=== PATIENT | female | born 1980 | race African-American/Black ===

== ENCOUNTER 2020-05-16 08:36 | Outpatient (REF) | payer MEDICARE, MEDICAID, SELFPAY | END 2020-05-16 08:37 | disposition home or self-care (01) | LOC: HO.LAB 08:36 | PROVIDERS: PCP Internal Medicine; Visit Provider Internal Medicine | DX: Z20.828 Contact with and (suspected) exposure to other viral communicable diseases (principal) | CPT/HCPCS: U0003 ==

== ENCOUNTER 2020-06-18 08:49 | Outpatient (REF) | payer MEDICARE, MEDICAID, SELFPAY | END 2020-06-18 08:50 | disposition home or self-care (01) | LOC: HO.LAB 08:49 | PROVIDERS: Visit Provider Internal Medicine | DX: Z20.828 Contact with and (suspected) exposure to other viral communicable diseases (principal) | CPT/HCPCS: C9803; U0003 ==

== ENCOUNTER 2020-06-24 12:23 | Outpatient (REF) | payer MEDICARE, MEDICAID, SELFPAY | END 2020-06-24 12:24 | disposition home or self-care (01) | LOC: HO.LAB 12:23 | PROVIDERS: PCP Internal Medicine; Visit Provider Internal Medicine | DX: Z20.828 Contact with and (suspected) exposure to other viral communicable diseases (principal) | CPT/HCPCS: C9803; U0003 ==

== ENCOUNTER 2020-07-09 08:25 | Outpatient (REF) | payer MEDICARE, MEDICAID, SELFPAY | END 2020-07-09 08:26 | disposition home or self-care (01) | LOC: HO.LAB 08:25 | PROVIDERS: Visit Provider Internal Medicine | DX: Z20.828 Contact with and (suspected) exposure to other viral communicable diseases (principal) | CPT/HCPCS: C9803; U0003 ==

== ENCOUNTER 2020-07-29 07:32 | Outpatient (REF) | payer MEDICARE, MEDICAID, SELFPAY | END 2020-07-29 07:33 | disposition home or self-care (01) | LOC: HO.LAB 07:32 | PROVIDERS: Visit Provider Internal Medicine | DX: Z20.822 Contact with and (suspected) exposure to COVID-19 (principal) | CPT/HCPCS: 36415; C9803; U0003 ==

== ENCOUNTER 2020-08-29 10:36 | Outpatient (REF) | payer MEDICARE, MEDICAID, SELFPAY | END 2020-08-29 10:37 | disposition home or self-care (01) | LOC: HO.LAB 10:36 | PROVIDERS: PCP Internal Medicine; Visit Provider Internal Medicine | DX: Z20.822 Contact with and (suspected) exposure to COVID-19 (principal) | CPT/HCPCS: 36415; C9803; U0003; U0005 ==

== ENCOUNTER 2020-10-03 12:44 | Outpatient (REF) | payer MEDICARE, MEDICAID, SELFPAY | END 2020-10-03 12:45 | disposition home or self-care (01) | LOC: HO.LAB 12:44 | PROVIDERS: Visit Provider Internal Medicine | DX: Z20.822 Contact with and (suspected) exposure to COVID-19 (principal) | CPT/HCPCS: 36415; C9803; U0003; U0005 ==

== ENCOUNTER 2020-11-08 12:04 | Outpatient (REF) | payer MEDICARE, MEDICAID, SELFPAY ==
[2020-11-08 12:27] LABS: COVID-19 Test Negative (Negative); IDNOW Serial# 55D5AD1C
== END 2020-11-08 12:05 | disposition home or self-care (01) ==
LOC: HO.LAB 12:04
PROVIDERS: Visit Provider Internal Medicine
DX: Z20.822 Contact with and (suspected) exposure to COVID-19 (principal)
CPT/HCPCS: 36415; 87635; C9803

== ENCOUNTER 2021-04-10 08:11 | Outpatient (REF) | payer MEDICARE, MEDICAID, SELFPAY | END 2021-04-10 08:12 | disposition home or self-care (01) | LOC: HO.LAB 08:11 | PROVIDERS: PCP Internal Medicine; Visit Provider Internal Medicine | DX: Z20.822 Contact with and (suspected) exposure to COVID-19 (principal) | CPT/HCPCS: C9803; U0003; U0005 ==

== ENCOUNTER 2024-03-23 08:36 | Inpatient (IN) | payer SELFPAY ==
--- NOTE | ~2024-03-23 | CT_ITS ---
EXAMINATION: CT ABDOMEN AND PELVIS WITH CONTRAST CLINICAL INFORMATION: Abdominal pain, nausea and vomiting COMPARISON: None available. TECHNIQUE: Multidetector volumetric images were obtained from the superior aspect of the liver through the pubic symphysis following administration 85 mL of Omnipaque 350 intravenous contrast. Sagittal and coronal reformatted images were obtained on the technologist's workstation. Oral contrast: No This CT examination was performed using dose optimization techniques as appropriate, variously including the following: *Automated exposure control *Adjustment of mA and/or kV according to patient size (this includes techniques or standardized protocols for targeted exams where dose is matched to indication/reason for exam; i.e. extremities or head) *Use of iterative reconstruction technique DLP: 616 mGy-cm FINDINGS: LUNG BASES: Heart size is prominent. Nonspecific groundglass changes are seen at the lung bases. LIVER, GALLBLADDER, AND BILIARY TREE: The liver is normal in size, shape, and attenuation. No focal hepatic lesion or biliary ductal dilatation is present. The gallbladder wall is thickened with some pericholecystic fluid and some minimal inflammatory changes in the surrounding fat. Changes are at least suggestive of cholecystitis but ultrasound is recommended for further evaluation. There are no radiopaque gallstones.. PANCREAS: Unremarkable. SPLEEN: Unremarkable. ADRENAL GLANDS: Unremarkable. KIDNEYS AND URETERS: The kidneys are normal in size, shape, and attenuation. No hydronephrosis, hydroureter, or calculi seen. No perinephric stranding. BLADDER: Unremarkable. GASTROINTESTINAL TRACT: There is a tiny hiatal hernia. The small and large bowel are unremarkable. The appendix is unremarkable. ABDOMINAL WALL: Small periumbilical hernia seen containing only fat along with a small epigastric hernia containing fat as well as a portion of a recanalized umbilical vein. LYMPH NODES: No retroperitoneal lymphadenopathy. VASCULAR: Unremarkable. PELVIC VISCERA: The uterus and adnexa are unremarkable. OSSEOUS STRUCTURES: Unremarkable. CT/CT abdomen pelvis w IV con IMPRESSION: 1. Gallbladder wall thickening with pericholecystic fluid and some inflammatory changes in the surrounding fat. Findings are at least suggestive of cholecystitis. Ultrasound is recommended for further evaluation. 2. Other incidental findings as described above. Fleischner guidelines were followed. Electronically signed by: Arron Duvall MD 03/23/2024 12:19 PM EDT
--- NOTE | ~2024-03-23 | US_ITS ---
EXAMINATION: US ABDOMEN LIMITED CLINICAL INFORMATION: Acute cholecystitis. COMPARISON: CT abdomen and pelvis with contrast 03/23/2024. TECHNIQUE: Real-time imaging of the right upper quadrant abdominal viscera. FINDINGS: LIVER: Mild hepatomegaly measuring 17.5 cm in length. The liver contour is normal. Slightly increased parenchymal echogenicity. No focal hepatic lesion. There is no intrahepatic biliary duct dilatation seen. GALLBLADDER: The gallbladder is decompressed and filled with calculi, limiting evaluation of the wall. No significant pericholecystic free fluid. Negative Polanco's sign. COMMON BILE DUCT: Normal in caliber measuring 0.3 cm in diameter. US/US abdomen limited IMPRESSION: 1. Decompressed gallbladder filled with stones which limits the visualization of the gallbladder wall. No significant pericholecystic free fluid. Negative Polanco's sign. Findings are equivocal for acute cholecystitis, for which clinical correlation is needed. Further evaluation with a hepatobiliary nuclear medicine study could be obtained as clinically warranted. 2. Mild hepatomegaly with slightly increased parenchymal echogenicity which is nonspecific but could be seen in the setting of hepatic steatosis or hepatocellular disease. Electronically signed by: Emmy Goode MD 03/23/2024 02:48 PM EDT
[2024-03-23 08:40] VITALS: BP 149/77; PULSE 77; RESP 16; TEMP 37.2; O2SAT 94; BMI 39.5
[2024-03-23 08:53] LABS: MANUAL DIFF FLAG NO
[2024-03-23 08:55] LABS: Basophils Percent Auto 0.4 % (0-2); Eosinophils Percent Auto 0.1 % (0-4); Hematocrit 37.1 % (37.0-47.0); Hemoglobin 12.1 g/dl (12.0-16.0); Imm Gran Abs Auto 0.03 X10*3/uL (0.00-0.03); Imm Gran Pct Auto 0.4 % (0.0-0.4); Lymphocytes Absolute Auto 0.8 X10*3/uL (1.2-4.9); Lymphocytes Percent Auto 10.3 % (20-40); Mean Corpuscular HGB Conc 32.6 g/dl (31.0-35.0); Mean Corpuscular Hemoglobin 26.9 pg (27.0-33.0); Mean Corpuscular Volume 82.6 fL (80.0-98.0); Mean Platelet Volume 11.1 fL (9.4-12.3); Monocytes Absolute Auto 0.2 X10*3/uL (0.1-1.2); Monocytes Percent Auto 3.1 % (2-11); Neutrophils Absolute Auto 6.3 x10*3/uL (2.0-8.3); Neutrophils Percent Auto 85.7 % (45-73); Platelet Count 147 X10*3/uL (160-400); Red Blood Count 4.49 X10*6/uL (4.20-5.50); Red Cell Distribution Width 15.3 % (11.0-16.0); White Blood Count 7.4 X10*3/uL (4.8-10.8)
[2024-03-23 09:14] LABS: Alanine Aminotransferase 16 U/L (0-31); Albumin Level 4.1 g/dL (3.5-5.0); Alkaline Phosphatase 51 U/L (39-117); Anion Gap 14 (12-20); Aspartate Amino Transferase 13 U/L (5-31); Bilirubin Total 0.4 mg/dL (0.0-1.0); Blood Urea Nitrogen 9 mg/dL (9-16); Calcium 9.2 mg/dL (8.4-10.2); Carbon Dioxide 24 mmol/L (22-29); Chloride 106 mmol/L (96-108); Creatinine Clr Calc Pharmacy 99.1; Estimated Glomerular Filt Rate > 60; Glucose Random 147 mg/dL (60-115); Potassium 3.7 mmol/L (3.3-5.1); Sodium 140 mmol/L (135-145); Total Protein 7.3 g/dL (6.5-8.0)
--- NOTE | 2024-03-23 09:21 | ED.ABDPAIN ---
HPI - Abdominal Pain General Chief Complaint: Abdominal Pain Stated Complaint: vomitng abd pain Time Seen by Provider: 03/23/24 09:13 Source: patient Mode of arrival: ambulatory Limitations: no limitations History of Present Illness ED Provider: Maria R TUTTLE HPI narrative: This is a 44-year-old female hx of HIV on cabanuva presenting to the emergency department complaints of diffuse abdominal pain ( worse in the epigastric region) that started on Saturday, 6 days ago, associated with nausea and vomiting that started earlier this morning ( no blood in either stool or vomit). She reports she just feels overall unwell. Decreased p.o. intake secondary to nausea, vomiting. No known sick contacts. She did take Zofran at home around 630 with little to no relief. She does report she is currently on her menses however she just had a normal period 2 weeks ago. Denies chest pain, shortness of breath, vision changes, dizziness, weakness, fevers, chills. Related Data Allergies Allergy/AdvReac Type Severity Reaction Status Date / Time No Known Allergies Allergy Verified 03/23/24 08:42 [No Known Allergies*] Review of Systems Review of Systems Yes all other systems are reviewed and are negative PMFSH Past Medical History Attestation statement: The following information was validated with the patient. Source: old records reviewed and nursing notes reviewed Social History Social History Smoked in Last 30 Days: No Use of substances other than those prescribed or required for medical reasons: Yes Substance Use Type: Marijuana Advance Directives: No Advance Directives Information Provided: Yes Do you have a plan to hurt others: No Plan Patient : No Physical Exam ED Vital Signs: Vital Signs - 24 hr 03/23/24 08:40 03/23/24 10:18 03/23/24 12:16 Temperature 98.9 F 97.8 F Pulse Rate 77 52 61 Respiratory Rate 16 14 14 Blood Pressure 149/77 H 131/81 139/83 Pulse Oximetry 94 100 Oxygen Delivery Method Room Air Room Air BMI result Body Mass Index 39.5 vss Appearance: Alert.? Oriented X3.? No acute distress.? Head: Normocephalic, atraumatic, no step-offs or deformities Eyes: Pupils equal, round and reactive to light.? ENT: Pharynx normal.? Neck: Normal inspection.? Neck supple.? CVS: Normal heart rate and rhythm.? Pulses normal.? Respiratory: No respiratory distress.? Breath sounds normal.? Abdomen: Soft and nontender.? Skin: Skin warm and dry.? Normal skin color.? Normal skin turgor.? Extremities: No lower extremity edema.? No calf ttp. 5/5 strength to bilateral upper and lower extremities Neuro: Oriented X 3.? No motor deficit.? No sensory deficit. CN 2-12 intact Course Reevaluation(s) Reevaluation #1: On her CBC unremarkable. Chemistry no acute findings needing intervention. Troponin negative. Lipase normal. Beta hCG negative. Patient's urine without infection. CT scan of abdomen concerning for acute cholecystitis. Will reach out to surgery for further input. Time: 12:29 Reevaluation #2: Ceftriaxone 1 g will be given through the IV at this time. Surgery will come down and evaluate patient. Time: 12:32 Reevaluation #3: Plan surgical admit at this time. Medical Decision Making Medical Decision Making [facility] Narrative: 44 year old female presents with epigastric abdominal discomfort ongoing for the past 6 days. Physical exam with epigastric discomfort/right upper quadrant discomfort. Normoactive bowel sounds. History and physical exam concerning for gastritis versus GERD versus cholecystitis. Less likely cholangitis, choledocholithiasis, appendicitis, acute abdomen, pancreatitis, obstruction. Will rule out metabolic derangements. Plan labs, imaging, urine Differential Diagnosis Differential Diagnoses: The differential diagnosis associated with the presentation includes History and physical exam concerning for gastritis versus GERD versus cholecystitis. Less likely cholangitis, choledocholithiasis, appendicitis, acute abdomen, pancreatitis, obstruction. Will rule out metabolic derangements. Admission/Observation Consideration of admission/observation: Escalation of care including admission/observation considered possible Consult Healthcare Provider Management of the patient was discussed with: Sort Line Worker (Surgery Dr. James) Lab Data [facility] Lab Attestation statement: I reviewed the patient's lab results. 03/23/24 08:50 03/23/24 08:50 Labs: Lab Results 03/23/24 03/23/24 03/23/24 Range/Units 08:50 09:36 10:40 WBC 7.4 (4.8-10.8) X10*3/uL RBC 4.49 (4.20-5.50) X10*6/uL Hgb 12.1 (12.0-16.0) g/dl Hct 37.1 (37.0-47.0) % MCV 82.6 (80.0-98.0) fL MCH 26.9 L (27.0-33.0) pg MCHC 32.6 (31.0-35.0) g/dl RDW 15.3 (11.0-16.0) % Plt Count 147 L (160-400) X10*3/uL MPV 11.1 (9.4-12.3) fL Immature Gran % (Auto) 0.4 (0.0-0.4) % Neut % (Auto) 85.7 H (45-73) % Lymph % (Auto) 10.3 L (20-40) % [place] % (Auto) 3.1 (2-11) % Eos % (Auto) 0.1 (0-4) % Baso % (Auto) 0.4 (0-2) % Lymph # (Auto) 0.8 L (1.2-4.9) X10*3/uL [place] # (Auto) 0.2 (0.1-1.2) X10*3/uL Eos # (Auto) 0.0 (0.0-0.4) X10*3/uL Baso # (Auto) 0.0 (0.0-0.2) X10*3/uL Abs Immat Gran (auto) 0.03 (0.00-0.03) X10*3/uL Absolute Neuts (auto) 6.3 (2.0-8.3) x10*3/uL Absolute Nucleated RBC 0.000 (0.0-0.012) X10*3/uL Nucleated RBC % (auto) 0.0 (0.0-0.2) /100WBC Sodium 140 (135-145) mmol/L Potassium 3.7 (3.3-5.1) mmol/L Chloride 106 (96-108) mmol/L Carbon Dioxide 24 (22-29) mmol/L Anion Gap 14 (12-20) BUN 9 (9-16) mg/dL Creatinine 0.87 (0.5-1.4) mg/dL Estim Creat Clear Calc 99.1 Estimated GFR > 60 Random Glucose 147 H (60-115) mg/dL Calcium 9.2 (8.4-10.2) mg/dL Total Bilirubin 0.4 (0.0-1.0) mg/dL AST 13 (5-31) U/L ALT 16 (0-31) U/L Alkaline Phosphatase 51 (39-117) U/L Troponin I High Sens < 2.7 (<3.5-17.0) ng/L Total Protein 7.3 (6.5-8.0) g/dL Albumin 4.1 (3.5-5.0) g/dL Lipase 15 (8-78) U/L Beta HCG, Quant < 2 mIU/mL Urine Color Yellow Urine Appearance Clear Urine pH >= 9.0 (5.0-9.0) Ur Specific [place] 1.015 (1.005-1.025) Urine Protein Trace (Neg-Trace) mg/dL Urine Glucose (UA) Negative (Negative) mg/dL Urine Ketones Negative (Negative) mg/dL Urine Blood Large (3+) H (Negative) Urine Nitrite Negative (Negative) Ur Leukocyte Esterase Negative (Negative) Urine RBC >20 H (0-2) /HPF Urine WBC 0-5 (0-5) /HPF Ur Squamous Epith Cells 0-2 (0-2) /HPF Urine Bacteria None Seen (None Seen) Hyaline Casts 0-2 (0-2) /LPF Influenza Type A (PCR) NEGATIVE (Negative) Influenza Type B (PCR) NEGATIVE (Negative) RSV RNA Qual (PCR) NEGATIVE (Negative) SARS-CoV-2 RNA (RT-PCR) NEGATIVE (Negative) Independent Interpretation I performed an independent interpretation of an: CT Scan (CT/CT abdomen pelvis w IV con IMPRESSION: 1. Gallbladder wall thickening with pericholecystic fluid and some inflammatory changes in the surrounding fat. Findings are at least suggestive of cholecystitis. Ultrasound is recommended for further evaluation. 2. Other incidental findings as describe) Radiology Impression Discussion of test interpretation with radiology: I have reviewed the radiologist's reading. Chronic Conditions Patient?s care impacted by: Other (HIV) Medications Administered Generic Name Dose Route Start Last Admin Trade Name Freq PRN Reason Stop Dose Admin Ceftriaxone Sodium 1 gm/ 50 mls @ 100 mls/hr 03/23/24 12:29 03/23/24 12:42 Sodium Chloride IV 03/23/24 12:58 100 mls/hr ONCE ONE Administration Discontinued Medications Generic Name Dose Route Start Last Admin Trade Name Rona PRN Reason Stop Dose Admin Diphenhydramine HCl 25 mg 03/23/24 11:28 03/23/24 11:32 Diphenhydramine Hcl 25 Mg Capsule PO 03/23/24 11:29 25 mg ONCE ONE Administration Iohexol 85 ml 03/23/24 11:13 03/23/24 11:14 Iohexol 350 Mg/Ml 75 Ml Infus..Btl IV 03/23/24 11:14 85 ml ONCE ONE Administration Metoclopramide HCl 10 mg 03/23/24 11:28 03/23/24 11:32 Metoclopramide Hcl 10 Mg Tablet PO 03/23/24 11:29 10 mg ONCE ONE Administration Ondansetron HCl 4 mg 03/23/24 09:48 03/23/24 10:05 Ondansetron Hcl 4 Mg/2 Ml Vial IVPUSH 03/23/24 09:49 4 mg ONCE ONE Administration Critical Care Time Critical Care Time Critical Care Time: Yes Total Critical Care Time: 35 Attestation: I attest to this time spent taking care of the patient, obtaining history, physical, reviewing labs, imaging, treatment of patients condition +/- specialist/hospitalist consult Discharge Plan Discharge Clinical Impression: Acute cholecystitis Patient Disposition: Still a Patient Print Language: Occitan
[2024-03-23 09:28] LABS: Lipase 15 U/L (8-78)
--- NOTE | 2024-03-23 09:33 | ECG_ITS ---
Test Reason : ABD PAIN EPIGASTRIC Blood Pressure : / mmHG Vent. Rate : 059 BPM Atrial Rate : 059 BPM P-R Int : 214 ms QRS Dur : 090 ms QT Int : 458 ms P-R-T Axes : 053 042 028 degrees QTc Int : 453 ms Sinus bradycardia with 1st degree A-V block Otherwise normal ECG No previous ECGs available Referred By: Prince Heck Electronically Signed By:RHIANNA ALEXANDRA
[2024-03-23 09:39] LABS: HCG Quantitative < 2 mIU/mL
[2024-03-23 09:42] LABS: Appearance Urine Clear; Color Urine Yellow; Glucose Urine UA Negative (Negative); Leukocyte Esterase Urine Negative (Negative); Nitrite Urine Negative (Negative); PH >= 9.0 (5.0-9.0); Specific Gravity - Urine 1.015 (1.005-1.025); UMIC TRIGGER UACC YES; Urine Blood Large (3+) (Negative); Urine Ketones Negative (Negative); Urine Protein Trace mg/dL (Neg-Trace)
[2024-03-23 09:47] LABS: Bacteria Urine None Seen (None Seen); Hyaline Casts Urine 0-2 /LPF (0-2); RBC Urine >20 /HPF (0-2); Squamous Epithelial Cell Urine 0-2 /HPF (0-2); WBC Urine 0-5 /HPF (0-5)
--- NOTE | 2024-03-23 09:48 | PC.NURSE ---
a&ox4. vss and up to date. pt presents to the ED w/ epigastric pain radiating to her throat x saturday. pt also c/o associated nausea/vomiting/decreased PO intake/fever/chills x yesterday. pt took zofran at home [employer] w/ no relief. pt denies any blood in stool or vomit. abd tender w/ palpation. labs obtained in triage. ekg performed by tech. 20gIV placed in the right AC. pt waiting to have CT completed at this time. no sob/wob noted. respirations even/unlabored. plan of care ongoing. call stokes placed within reach.
[2024-03-23] MEDS: ondansetron HCL 4 MG/2 ML VIAL IVPUSH ×2 (10:05→18:45)
[2024-03-23 10:18] VITALS: BP 131/81; PULSE 52; RESP 14; TEMP 36.6; O2SAT 100
[2024-03-23 10:27] LABS: Troponin-I High Sensitivity < 2.7 ng/L (<3.5-17.0)
[2024-03-23] MEDS: iohexoL 350 MG/ML 75 ML INFUS..BTL 85 ML IV (11:14)
[2024-03-23 11:27] LABS: Influenza A PCR NEGATIVE (Negative); Influenza B PCR NEGATIVE (Negative); Resp Syncy Virus RNA Qual PCR NEGATIVE (Negative); SARS COV2 PCR INHOUSE NEGATIVE (Negative)
[2024-03-23] MEDS: diphenhydrAMINE HCL 25 MG CAPSULE PO (11:32)
[2024-03-23] MEDS: Metoclopramide HCl 10 MG TABLET PO (11:32)
--- NOTE | 2024-03-23 11:39 | PC.NURSE ---
Assumed care of this patient at 1100, patient continues to c/o nausea/vomiting, provider made aware, medicated per SEP.
[2024-03-23 12:16] VITALS: BP 139/83; PULSE 61; RESP 14
[2024-03-23] MEDS: cefTRIAXone sodium 1 GM in 0.9 % Sodium Chloride 50 ML IV (12:42)
--- NOTE | 2024-03-23 13:30 | HO.STUDENTHP ---
History of Present Illness Date of Service: 03/23/24 <Giovanna Kendall PA-C - Last Filed: 03/23/24 14:08> Chief Complaint: abdominal pain < Filed: 03/23/24 13:52> Pt is 44 year-old female with a PMHx of HIV on Cabenuva presenting with constant, worsening epigastric abdominal pain for six days and 12 hours of nausea with around 10 episodes of emesis. She states she hasn't been able to eat as much this week due to pain. She's had episodes of postprandial pain before, lasting a few hours. No diarrhea, constipation, hematochezia, fevers, chills, dysuria, increased urinary frequency, or hematuria. < Last Filed: 03/23/24 13:52> Pt is 44 year-old female with a PMHx of HIV on Cabenuva presenting with constant, worsening epigastric abdominal pain for six days and 12 hours of nausea with around 10 episodes of emesis. She states she hasn't been able to eat as much this week due to pain. She's had episodes of postprandial pain before, lasting a few hours. No diarrhea, constipation, hematochezia, fevers, chills, jaundice, dysuria, increased urinary frequency, or hematuria. <Giovanna Kendall PA-C - Last Filed: 03/23/24 14:08> Review of Systems Constitutional: Constitutional: Denies chills, Denies fever(s) and Reports poor appetite < Filed: 03/23/24 13:52> Eyes: Eyes: Reports no additional eye complaints < Filed: 03/23/24 13:52> ENT: Reports system reviewed and no additional complaints, except as documented < Filed: 03/23/24 13:52> Cardiovascular: Cardiovascular: Reports no additional cardiovascular complaints < Filed: 03/23/24 13:52> Respiratory: Respiratory: Reports no additional respiratory complaints < Filed: 03/23/24 13:52> Gastrointestinal: Gastrointestinal: Reports abdominal pain, Denies hematochezia, Denies change in bowel habits, Denies coffee ground emesis, Denies constipation, Denies diarrhea, Reports nausea and Reports vomiting < Filed: 03/23/24 13:52> Genitourinary: Genitourinary: Reports no additional female genitourinary complaints < Filed: 03/23/24 13:52> Musculoskeletal: Musculoskeletal: Reports no additional musculoskeletal complaints < Filed: 03/23/24 13:52> Integumentary/Breasts: Skin/Breast: Reports system reviewed and no additional complaints, except as docu < Filed: 03/23/24 13:52> Neurologic: Reports system reviewed and no additional complaints, except as documented < Filed: 03/23/24 13:52> Psychiatric: Psychiatric: Reports no additional psychiatric complaints < Filed: 03/23/24 13:52> [facility] Medical History: Medical History (Updated 03/23/24 @ 14:08 by Giovanna Kendall PA-C) HIV (human immunodeficiency virus infection) < Filed: 03/23/24 13:52> Surgical History: Surgical History (Updated 03/23/24 @ 14:06 by Giovanna Kendall PA-C) History of < Filed: 03/23/24 13:52> Social History: Social History (Updated 03/23/24 @ 14:07 by Giovanna Kendall PA-C) Smoked in Last 30 Days: No Use of substances other than those prescribed or required for medical reasons: Yes Substance Use Type: Marijuana Substance Use Frequency: Daily Advance Directives: No Advance Directives Information Provided: Yes Do you have a plan to hurt others: No Plan Patient : No < Filed: 03/23/24 13:52> Meds Allergies/Adverse reactions: Allergies Allergy/AdvReac Type Severity Reaction Status Date / Time No Known Allergies Allergy Verified 03/23/24 08:42 [No Known Allergies*] < Filed: 03/23/24 13:52> Home medications: Home Medications ?Medication ?Instructions ?Recorded ?Confirmed ?Last Taken ?Type cabotegravir ER 600 mg/3 6 ml IM Q60D 03/23/24 03/23/24 03/09/24 History mL-rilpivirine ER 900 mg/3mL IM suspension,ER (Cabenuva) <[facility] Filed: 03/23/24 13:52> Physical Exam Vital Signs and Narrative: Vital Signs: Last Vital Signs Temp 97.8 F 03/23/24 10:18 Pulse 61 03/23/24 12:16 Resp 14 03/23/24 12:16 BP 139/83 03/23/24 12:16 Pulse Ox 100 03/23/24 10:18 O2 Del Method Room Air 03/23/24 10:18 BMI result Body Mass Index 39.5 <[facility] Filed: 03/23/24 13:52> Afebrile <Nicole [facility] Filed: 03/23/24 13:52> Const: General: cooperative, no acute distress, alert and awake <Nicole [facility] Filed: 03/23/24 13:52> Orientation/consciousness: [facility] oriented x3 [facility]: 03/23/24 13:52> Limitations: no limitations <Nicole [facility] Filed: 03/23/24 13:52> HEENT: Head: Yes normocephalic and Yes atraumatic <Nicole [facility] Filed: 03/23/24 13:52> Ears: hearing grossly normal bilaterally <Nicole [facility] Filed: 03/23/24 13:52> Face and sinus: Yes face symmetric <Nicole [facility] Filed: 03/23/24 13:52> Mouth: Normal oral and palatal mucosa present <Nicole [facility] Filed: 03/23/24 13:52> Eyes: Conjunctivae: conjunctivae normal <Nicole [facility] Filed: 03/23/24 13:52> Sclerae: sclerae normal [facility] Filed: 03/23/24 13:52> EOM: EOMs intact bilaterally <Nicole [facility] Filed: 03/23/24 13:52> Neck: Yes full ROM and Yes no JVD <[facility] Filed: 03/23/24 13:52> Resp: Effort & Inspection: normal respiratory effort <[facility] Filed: 03/23/24 13:52> Auscultation: clear to auscultation bilaterally, no crackles, no rales, no rhonchi and no wheezes <[facility] Filed: 03/23/24 13:52> Cardio: Jugular venous distension: no JVD <[facility] Filed: 03/23/24 13:52> Rate: regular rate <[facility] Filed: 03/23/24 13:52> Rhythm: regular rhythm <[facility] Filed: 03/23/24 13:52> Heart sounds: S1 normal heart sound present, S2 normal heart sound present, no gallops, no murmurs and no rubs <[facility] Filed: 03/23/24 13:52> Peripheral pulses: Peripheral pulses 2+ throughout <[facility] Filed: 03/23/24 13:52> GI: Inspection: Yes normal to inspection <[facility] Filed: 03/23/24 13:52> Palpation (GI): Soft to palpation, Tenderness to palpation present (GI) in the epigastrum and in the RUQ; Polanco's sign negative and with no rebound tenderness, no guarding, not rigid, no masses, No Rebound tenderness present and Bladder palpation abnormal <[facility] Filed: 03/23/24 13:52> Auscultation: normoactive bowel sounds <[facility] Filed: 03/23/24 13:52> Rectal Exam - Female: deferred <[facility] Filed: 03/23/24 13:52> : General: Yes Bladder palpation abnormal and Yes no CVA tenderness <[facility] Filed: 03/23/24 13:52> Back/Spine/Pelvis: Back: no CVA tenderness <[facility] Filed: 03/23/24 13:52> Skin: General skin exam: no rashes or lesions noted <[facility] Last Filed: 03/23/24 13:52> Neuro: General: patient oriented x3 and moves all extremities <Nicole Last Filed: 03/23/24 13:52> Extrem: General: Yes capillary refill normal and Yes no pedal edema <Nicole Ritu Filed: 03/23/24 13:52> Results Labs CBC and Chem 7: 03/23/24 08:50 03/23/24 08:50 <Nicole Ritu Last Filed: 03/23/24 13:52> Labs: Laboratory Results - last 24 hr 03/23/24 03/23/24 03/23/24 08:50 09:36 10:40 MCV 82.6 MCH 26.9 L MCHC 32.6 RDW 15.3 Plt Count 147 L MPV 11.1 Immature Gran % (Auto) 0.4 Neut % (Auto) 85.7 H Lymph % (Auto) 10.3 L [place] % (Auto) 3.1 Eos % (Auto) 0.1 Baso % (Auto) 0.4 Lymph # (Auto) 0.8 L [place] # (Auto) 0.2 Eos # (Auto) 0.0 Baso # (Auto) 0.0 Abs Immat Gran (auto) 0.03 Absolute Neuts (auto) 6.3 Absolute Nucleated RBC 0.000 Nucleated RBC % (auto) 0.0 Anion Gap 14 Estim Creat Clear Calc 99.1 Estimated GFR > 60 Random Glucose 147 H Calcium 9.2 Total Bilirubin 0.4 AST 13 ALT 16 Alkaline Phosphatase 51 Troponin I High Sens < 2.7 Total Protein 7.3 Albumin 4.1 Lipase 15 Beta HCG, Quant < 2 Urine Color Yellow Urine Appearance Clear Urine pH >= 9.0 Ur Specific [place] 1.015 Urine Protein Trace Urine Glucose (UA) Negative Urine Ketones Negative Urine Blood Large (3+) H Urine Nitrite Negative Ur Leukocyte Esterase Negative Urine RBC >20 H Urine WBC 0-5 Ur Squamous Epith Cells 0-2 Urine Bacteria None Seen Hyaline Casts 0-2 Influenza Type A (PCR) NEGATIVE Influenza Type B (PCR) NEGATIVE RSV RNA Qual (PCR) NEGATIVE SARS-CoV-2 RNA (RT-PCR) NEGATIVE <Nicole Weathers Filed: 03/23/24 13:52> Imaging Radiologist's Impressions: Impressions Abdomen/Pelvis CT 03/23/24 11:06 IMPRESSION: 1. Gallbladder wall thickening with pericholecystic fluid and some inflammatory changes in the surrounding fat. Findings are at least suggestive of cholecystitis. Ultrasound is recommended for further evaluation. 2. Other incidental findings as described above. Fleischner guidelines were followed. Electronically signed by: Arron Duvall MD 03/23/2024 12:19 PM EDT RP <Nicole Weathers - Last Filed: 03/23/24 13:52> Assessment and Plan (1) Acute cholecystitis: Status: Acute <Nicole Weathers [facility] Filed: 03/23/24 13:52> Pt is 44 yo with PMHx of HIV on Cabnenuva presenting with 6 days of worsening abdominal pain, 12 hours of nausea and vomiting, and past symptoms consistent with billiary colic. Exam is significant for epigastric/RUQ tenderness without Polanco's sign or peritoneal signs, labs significant for left shift, and abdominal CT showing gallbladder wall thickening w/ pericholecystic fluid. Consistent with acute cholecystitis. Discussed treatment, including surgical and non-surgical options, including all risks/benefits. No history of cardiovascular or respiratory diseases, NKDA, and has had a without complications. Consented to a laproscopic cholecystectomy. Plan: Admit to surgery, plan for lap dominic, possible open tomorrow IV hydration Analgesia prn for pain Zofran prn for nausea Seen independently by Nicole Weathers, MS3 <Nicole Weathers Last Filed: 03/23/24 13:52> Pt is 44 yo with PMHx of HIV on Cabnenuva presenting with 6 days of worsening abdominal pain, 12 hours of nausea and vomiting, and past symptoms consistent with billiary colic. Exam is significant for epigastric/RUQ tenderness without Polanco's sign or peritoneal signs, labs significant for left shift, and abdominal CT showing gallbladder wall thickening w/ pericholecystic fluid. Consistent with acute cholecystitis. Discussed treatment, including surgical and non-surgical options, including all risks/benefits. No history of cardiovascular or respiratory diseases, NKDA, and has had a without complications. Consented to a laproscopic cholecystectomy. Plan: Admit to surgery, plan for lap dominic, possible open tomorrow IV hydration Analgesia prn for pain Zofran prn for nausea Seen independently by YAZMIN Briscoe Agree with above assessment and plan. 44 year old female with PMH HIV presenting with RUQ/epigastric pain since last Saturday with acute worsening last night with development of nausea/vomiting. Work up included CBC, BMP, LFTs which were WNL. She is tender in the RUQ with positive polanco sign. CT scan showed distended gallbladder with wall thickening and pericholecystic fluid suggestive of acute cholecystitis. Risks, benefits, alternatives of laparoscopic possible open cholecystectomy were reviewed with the patient including but not limited to bleeding, infection, numbness, pain, poor healing, injury to the liver, bowel or bile ducts, leak, retained stones and the patient wishes to proceed.? She was added onto the OR schedule for tomorrow. All questions were answered. Recanalization of umbilical vein noted. No evidence of cirrhosis on CT. Will obtain ABD US. <Giovanna Kendall PA-C - Last Filed: 03/23/24 14:08> Pt is 44 yo with PMHx of HIV on Cabnenuva presenting with 6 days of worsening abdominal pain, 12 hours of nausea and vomiting, and past symptoms consistent with billiary colic. Exam is significant for epigastric/RUQ tenderness without Polanco's sign or peritoneal signs, labs significant for left shift, and abdominal CT showing gallbladder wall thickening w/ pericholecystic fluid. Consistent with acute cholecystitis. Discussed treatment, including surgical and non-surgical options, including all risks/benefits. No history of cardiovascular or respiratory diseases, NKDA, and has had a without complications. Consented to a laproscopic cholecystectomy. Plan: Admit to surgery, plan for lap dominic, possible open tomorrow IV hydration Analgesia prn for pain Zofran prn for nausea Seen independently by YAZMIN Briscoe Agree with above assessment and plan. 44 year old female with PMH HIV presenting with RUQ/epigastric pain since last Saturday with acute worsening last night with development of nausea/vomiting. Work up included CBC, BMP, LFTs which were WNL. She is tender in the RUQ with positive polanco sign. CT scan showed distended gallbladder with wall thickening and pericholecystic fluid suggestive of acute cholecystitis. Risks, benefits, alternatives of laparoscopic possible open cholecystectomy were reviewed with the patient including but not limited to bleeding, infection, numbness, pain, poor healing, injury to the liver, bowel or bile ducts, leak, retained stones and the patient wishes to proceed.? She was added onto the OR schedule for tomorrow. All questions were answered. Recanalization of umbilical vein noted. No evidence of cirrhosis on CT. Will obtain ABD US. Patient is seen by me as well. As noted above. <Jamey James MD - Last Filed: 03/23/24 14:34> Quality Stroke Does the patient have a stroke diagnosis?: No <Giovanna Kendall PA-C - Last Filed: 03/23/24 14:08> VTE Prior VTE?: No <Giovanna Kendall PA-C - Last Filed: 03/23/24 14:08> VTE Risk Level:: Surgical - high <Giovanna Kendall PA-C - Last Filed: 03/23/24 14:08> VTE Device Contraindication: N/A - Device Ordered <Giovanna Kendall PA-C - Last Filed: 03/23/24 14:08> VTE Drug Contraindication: N/A - Med Ordered <Giovanna Kendall PA-C - Last Filed: 03/23/24 14:08>
[2024-03-23] MEDS: Morphine Sulfate 4 MG/ML CARTRIDGE IVPUSH (14:14)
--- NOTE | 2024-03-23 14:25 | PHA.MEDREC ---
Pharmacy Consult ? Medication Reconciliation Pharmacy has completed the medication reconciliation, spoke to patient and family member who confirmed Cabenuva injections every 2 months, stated her last injection was March 09, 2024, family member at bedside said she takes nothing else as pt had difficult time speaking.
[2024-03-23] MEDS: Piperacillin Sodium/Tazobactam 3.375 GM in 0.9 % Sodium Chloride 50 ML IV ×2 (14:26→21:31)
[2024-03-23] MEDS: Lactated Ringers 1,000 ML 100 ML IVCONT ×2 (16:01→22:06)
[2024-03-23] MEDS: 0.9 % Sodium Chloride Flush 3 ML SYRINGE IVFLUSH (16:01)
[2024-03-23 17:42] VITALS: BP 155/71; PULSE 76; RESP 16; TEMP 36.8; O2SAT 98
--- NOTE | 2024-03-23 18:18 | PC.NURSE ---
Pt ambulated to the bathroom c/o dizziness- Pt stated her nausea was worse with standing and sitting up-
[2024-03-23] MEDS: HYDROmorphone HCl 1 MG/ML SYRINGE 0.5 MG IVPUSH (19:56)
[2024-03-23 21:04] VITALS: BP 137/76; PULSE 68; RESP 20; TEMP 36.6; O2SAT 99
[2024-03-23] MEDS: Melatonin 3 MG TABLET 6 MG PO (21:30)
[2024-03-23] MEDS: oxyCODONE HCl Immed Release 5 MG TABLET PO (21:44)
[2024-03-23 22:00] VITALS: BMI 38.3
[2024-03-23 22:09] VITALS: BMI 38.3
[2024-03-23] MEDS: Metoclopramide HCl 10 MG/2 ML VIAL IVPUSH (23:20)
[2024-03-24] VITALS (13 sets, daily range): BP systolic 113–162; BP diastolic 58–96; PULSE 58–74; RESP 16–20; TEMP 36.6–37.1; O2SAT 95–100
--- NOTE | 2024-03-24 00:09 | PC.NURSE ---
Patient would like to receive flu vaccine after surgery if possible.
[2024-03-24] MEDS: Piperacillin Sodium/Tazobactam 3.375 GM in 0.9 % Sodium Chloride 50 ML IV ×2 (02:51→07:38)
[2024-03-24] MEDS: Metoclopramide HCl 10 MG/2 ML VIAL IVPUSH ×2 (06:31→17:35)
--- NOTE | 2024-03-24 07:08 | HO.STUDENTPN ---
Subjective Subjective Date of Service: 03/24/24 <[facility] Last Filed: 03/24/24 07:17> 03/25/24 <Giovanna Kendall PA-C - Last Filed: 03/25/24 08:38> 03/25/24 <Jamey James MD - Last Filed: 03/25/24 09:39> Interval History: Pt resting comfortably in bed, endorses nausea but no additional episodes of emesis, pain 310 with analgesia NPO for lap dominic today <[facility] Last Filed: 03/24/24 07:17> Review of Systems Review of Systems: Yes all other systems are reviewed and are negative <[facility] Filed: 03/24/24 07:17> Constitutional Constitutional: Reports no additional constitutional complaints <[facility] Filed: 03/24/24 07:17> Eyes Eyes: Reports no additional eye complaints <[facility] Filed: 03/24/24 07:17> ENT Ears, Nose, Mouth, and Throat: Reports system reviewed and no additional complaints, except as documented <[facility] Filed: 03/24/24 07:17> Cardiovascular Cardiovascular: Reports no additional cardiovascular complaints <[facility] Filed: 03/24/24 07:17> Respiratory Respiratory: Reports no additional respiratory complaints <[facility] Filed: 03/24/24 07:17> Gastrointestinal Gastrointestinal: Reports abdominal pain (RUQ), Denies bloating, Reports nausea and Denies vomiting <[facility] Filed: 03/24/24 07:17> Genitourinary Genitourinary: Reports no additional female genitourinary complaints <[facility] Filed: 03/24/24 07:17> Musculoskeletal Musculoskeletal: Reports no additional musculoskeletal complaints <[facility] Filed: 03/24/24 07:17> Integumentary/Breasts Skin/Breast: Reports no additional skin complaints <[facility] Filed: 03/24/24 07:17> Neurologic Neurologic: Reports system reviewed and no additional complaints, except as documented <[facility] Filed: 03/24/24 07:17> Psychiatric Psychiatric: Reports no additional psychiatric complaints <[facility] Filed: 03/24/24 07:17> Endocrine Endocrine: Reports no additional endocrine complaints <[facility] Filed: 03/24/24 07:17> Hematologic/Lymphatic Hematologic/Lymphatic: Reports no additional hematologic/lymphatic complaints <[facility] Filed: 03/24/24 07:17> Physical Exam Vital Signs: Vital Signs: Last Vital Signs Temp 97.9 F 03/24/24 03:18 Pulse 70 03/24/24 03:18 Resp 16 03/24/24 03:18 BP 114/61 03/24/24 03:18 Pulse Ox 98 03/24/24 03:18 O2 Del Method Room Air 03/24/24 03:18 BMI result Body Mass Index 38.3 <[facility] Filed: 03/24/24 07:17> Remains afebrile <[facility] Filed: 03/24/24 07:17> Const: General: cooperative, no acute distress, alert, awake and Physically active <[facility] Filed: 03/24/24 07:17> Orientation/consciousness: patient oriented x3 <[facility] Filed: 03/24/24 07:17> HEENT: Head: Yes normocephalic and Yes atraumatic <[facility] Filed: 03/24/24 07:17> Ears: hearing grossly normal bilaterally <[facility] Filed: 03/24/24 07:17> Face and sinus: Yes face symmetric <[facility] Filed: 03/24/24 07:17> Eyes: Sclerae: sclerae normal <[facility] Filed: 03/24/24 07:17> EOM: EOMs intact bilaterally <[facility] Filed: 03/24/24 07:17> Resp: Effort & Inspection: normal respiratory effort <[facility] Filed: 03/24/24 07:17> Auscultation: clear to auscultation bilaterally, no crackles, no rales, no rhonchi and no wheezes [place] Filed: 03/24/24 07:17> Cardio: Jugular venous distension: no JVD <[facility] Filed: 03/24/24 07:17> Rate: regular [facility] Filed: 03/24/24 07:17> Rhythm: regular rhythm [facility] Filed: 03/24/24 07:17> Heart sounds: S1 normal heart sound present, S2 normal heart sound present, no gallops, no murmurs and no rubs <[facility] Filed: 03/24/24 07:17> Peripheral pulses: Peripheral pulses 2+ throughout <[facility] Filed: 03/24/24 07:17> GI: Palpation (GI): Soft to palpation, not firm, Tenderness to palpation present (GI) in the RUQ; with no rebound tenderness, not rigid, no masses and Bladder palpation abnormal [place] Filed: 03/24/24 07:17> Auscultation: normoactive bowel sounds <Nicole [facility] Filed: 03/24/24 07:17> : General: Yes Bladder palpation abnormal and Yes no CVA tenderness <[facility] Filed: 03/24/24 07:17> Back/Spine/Pelvis: Back: no CVA tenderness <[facility] Filed: 03/24/24 07:17> Skin: General skin exam: no rashes or lesions noted <[facility] Filed: 03/24/24 07:17> Neuro: General: patient oriented x3 and moves all extremities <[facility] Filed: 03/24/24 07:17> Extrem: General: Yes normal to inspection, Yes capillary refill normal and Yes no pedal edema <[facility] Filed: 03/24/24 07:17> Objective Data Active Medications Acetaminophen (Acetaminophen 325 Mg Tablet) 650 mg PO Q6H PRN PRN Reason: Pain, Mild (Pain Scale 1-3), fever or headache Calcium Carbonate (Calcium Carbonate 750 Mg Tab.Chew) 750 mg PO Q4H PRN PRN Reason: Heartburn Hydromorphone HCl (Hydromorphone Hcl 1 Mg/Ml Syringe) 0.5 mg IVPUSH Q4H PRN; Protocol PRN Reason: Pain, Severe (Pain Scale 7-10) Last Admin: 03/23/24 19:56 Dose: 0.5 mg Documented By: SHANITA Piperacillin Sod/Tazobactam (Sod 3.375 gm/ Sodium Chloride) 50 mls @ 100 mls/hr IV Q6H [facility] Last Infusion: 03/24/24 03:25 Dose: Infused Documented By: DANIELA Lactated Ringer's (Lr) 1,000 mls @ 100 mls/hr IVCONT .Q10H [facility] Last Admin: 03/24/24 01:01 Dose: Not Given Documented By: DANIELA Non-Admin Reason: IV Running Influenza Virus Vaccine (Flu Vacc [id number](6mos Up)/Pf 0.5 Ml Syringe) 0.5 ml IM .ONCE ONE Stop: 03/24/24 08:01 Magnesium Hydroxide (Milk Of Magnesia 30 Ml Oral.Susp) 30 ml PO DAILY PRN PRN Reason: Constipation Melatonin (Melatonin 3 Mg Tablet) 6 mg PO BEDTIME PRN PRN Reason: Insomnia Last Admin: 03/23/24 21:30 Dose: 6 mg Documented By: DANIELA Metoclopramide HCl (Metoclopramide Hcl 10 Mg/2 Ml Vial) 10 mg IVPUSH Q6H PRN PRN Reason: Nausea Last Admin: 03/24/24 06:31 Dose: 10 mg Documented By: JOE Ondansetron HCl (Ondansetron Hcl 4 Mg/2 Ml Vial) 4 mg IVPUSH Q8H PRN PRN Reason: Nausea and Vomiting Last Admin: 03/23/24 18:45 Dose: 4 mg Documented By: SHANITA Oxycodone HCl (Oxycodone Hcl Immed Release 5 Mg Tablet) 5 mg PO Q4H PRN PRN Reason: Pain, Moderate(Pain Scale 4-6) Last Admin: 03/23/24 21:44 Dose: 5 mg Documented By: DANIELA Sodium Chloride (0.9 % Sodium Chloride Flush 3 Ml Syringe) 3 ml IVFLUSH QSHIFT [facility] Last Admin: 03/23/24 23:27 Dose: Not Given Documented By: DANIELA Non-Admin Reason: IV Running <Nicole [facility] Filed: 03/24/24 07:17> Labs CBC & Chem 7: 03/23/24 08:50 03/23/24 08:50 <[facility] Last Filed: 03/24/24 07:17> Labs: Laboratory Results - last 24 hr 03/23/24 03/23/24 03/23/24 08:50 09:36 10:40 MCV 82.6 MCH 26.9 L MCHC 32.6 RDW 15.3 Plt Count 147 L MPV 11.1 Immature Gran % (Auto) 0.4 Neut % (Auto) 85.7 H Lymph % (Auto) 10.3 L [place] % (Auto) 3.1 Eos % (Auto) 0.1 Baso % (Auto) 0.4 Lymph # (Auto) 0.8 L [place] # (Auto) 0.2 Eos # (Auto) 0.0 Baso # (Auto) 0.0 Abs Immat Gran (auto) 0.03 Absolute Neuts (auto) 6.3 Absolute Nucleated RBC 0.000 Nucleated RBC % (auto) 0.0 Anion Gap 14 Estim Creat Clear Calc 99.1 Estimated GFR > 60 Random Glucose 147 H Calcium 9.2 Total Bilirubin 0.4 AST 13 ALT 16 Alkaline Phosphatase 51 Troponin I High Sens < 2.7 Total Protein 7.3 Albumin 4.1 Lipase 15 Beta HCG, Quant < 2 Urine Color Yellow Urine Appearance Clear Urine pH >= 9.0 Ur Specific [place] 1.015 Urine Protein Trace Urine Glucose (UA) Negative Urine Ketones Negative Urine Blood Large (3+) H Urine Nitrite Negative Ur Leukocyte Esterase Negative Urine RBC >20 H Urine WBC 0-5 Ur Squamous Epith Cells 0-2 Urine Bacteria None Seen Hyaline Casts 0-2 Influenza Type A (PCR) NEGATIVE Influenza Type B (PCR) NEGATIVE RSV RNA Qual (PCR) NEGATIVE SARS-CoV-2 RNA (RT-PCR) NEGATIVE <Nicole Weathers Filed: 03/24/24 07:17> Assessment and Plan (1) Acute cholecystitis: Status: Acute <Nicole Weathers Filed: 03/24/24 07:17> Assessment and Plan: 44 yo F with PMH HIV on [place] presenting with RUQ pain, nausea, and vomiting with CT abdomen showing evidence of actue cholecystitis. No events overnight, no episodes of emesis on antiemetics, pain under control with analgesia. Plan: NPO for laporoscopic cholecystectomy today Metoclopramide prn for nausea Analgesia for post-op pain control < Filed: 03/24/24 07:17> Quality Stroke Does the patient have a stroke diagnosis?: No < Filed: 03/24/24 07:17> VTE Prior VTE?: No < Filed: 03/24/24 07:17> VTE Risk Level:: Surgical - high < Filed: 03/24/24 07:17> VTE Device Contraindication: N/A - Device Ordered < Filed: 03/24/24 07:17> VTE Drug Contraindication: N/A - Med Ordered < Filed: 03/24/24 07:17>
[2024-03-24] MEDS: ondansetron HCL 4 MG/2 ML VIAL IVPUSH ×2 (10:21→19:02)
--- NOTE | 2024-03-24 10:45 | HO.ANESPROP2 ---
[facility] Active Problems Active Problems: All Active Problems Acute cholecystitis (Acute) Past Medical History Medical History HIV (human immunodeficiency virus infection) Functional capacity: independent ambulation Patient : No Family History Family history of problems with anesthesia: No Surgical History Surgical History History of History of Problems with Anesthesia: No Social History Social History Household Members: Children Housing: Apartment Do you presently have visiting nurse or other home services: No Patient Tobacco Use Status: Never used Tobacco Substance Use Type: Marijuana Meds Allergies Allergy/AdvReac Type Severity Reaction Status Date / Time No Known Allergies Allergy Verified 03/23/24 08:42 [No Known Allergies*] Active Medications: Current Medications Acetaminophen (Acetaminophen 325 Mg Tablet) 650 mg PO Q6H PRN PRN Reason: Pain, Mild (Pain Scale 1-3), fever or headache Calcium Carbonate (Calcium Carbonate 750 Mg Tab.Chew) 750 mg PO Q4H PRN PRN Reason: Heartburn Hydromorphone HCl (Hydromorphone Hcl 1 Mg/Ml Syringe) 0.5 mg IVPUSH Q4H PRN; Protocol PRN Reason: Pain, Severe (Pain Scale 7-10) Last Admin: 03/23/24 19:56 Dose: 0.5 mg Piperacillin Sod/Tazobactam (Sod 3.375 gm/ Sodium Chloride) 50 mls @ 100 mls/hr IV Q6H [facility] Last Infusion: 03/24/24 08:20 Dose: Infused Lactated Ringer's (Lr) 1,000 mls @ 100 mls/hr IVCONT .Q10H [facility] Last Infusion: 03/24/24 09:39 Dose: Infused Magnesium Hydroxide (Milk Of Magnesia 30 Ml Oral.Susp) 30 ml PO DAILY PRN PRN Reason: Constipation Melatonin (Melatonin 3 Mg Tablet) 6 mg PO BEDTIME PRN PRN Reason: Insomnia Last Admin: 03/23/24 21:30 Dose: 6 mg Metoclopramide HCl (Metoclopramide Hcl 10 Mg/2 Ml Vial) 10 mg IVPUSH Q6H PRN PRN Reason: Nausea Last Admin: 03/24/24 06:31 Dose: 10 mg Ondansetron HCl (Ondansetron Hcl 4 Mg/2 Ml Vial) 4 mg IVPUSH Q8H PRN PRN Reason: Nausea and Vomiting Last Admin: 03/24/24 10:21 Dose: 4 mg Oxycodone HCl (Oxycodone Hcl Immed Release 5 Mg Tablet) 5 mg PO Q4H PRN PRN Reason: Pain, Moderate(Pain Scale 4-6) Last Admin: 03/23/24 21:44 Dose: 5 mg Sodium Chloride (0.9 % Sodium Chloride Flush 3 Ml Syringe) 3 ml IVFLUSH QSHIFT [facility] Last Admin: 03/24/24 07:15 Dose: Not Given Home Medications ?Medication ?Instructions ?Recorded ?Confirmed ?Last Taken ?Type cabotegravir ER 600 mg/3 6 ml IM Q60D 03/23/24 03/23/24 03/09/24 History mL-rilpivirine ER 900 mg/3mL IM suspension,ER (C[place]enuva) Exam Height,Weight and Vital Signs: Height 5 ft 4 in Weight 101.3 kg Last Vital Signs Temp 97.9 F 03/24/24 07:11 Pulse 60 03/24/24 07:11 Resp 16 03/24/24 07:11 BP 133/84 03/24/24 07:11 Pulse Ox 98 03/24/24 07:11 O2 Del Method Room Air 03/24/24 07:11 Pertinent Lab Results Pertinent Lab Results: Laboratory Tests 03/23/24 03/23/24 03/23/24 08:50 09:36 10:40 WBC 7.4 RBC 4.49 Hgb 12.1 Hct 37.1 MCV 82.6 MCH 26.9 L MCHC 32.6 RDW 15.3 Plt Count 147 L MPV 11.1 Immature Gran % (Auto) 0.4 Neut % (Auto) 85.7 H Lymph % (Auto) 10.3 L [place] % (Auto) 3.1 Eos % (Auto) 0.1 Baso % (Auto) 0.4 Lymph # (Auto) 0.8 L [place] # (Auto) 0.2 Eos # (Auto) 0.0 Baso # (Auto) 0.0 Abs Immat Gran (auto) 0.03 Absolute Neuts (auto) 6.3 Absolute Nucleated RBC 0.000 Nucleated RBC % (auto) 0.0 Sodium 140 Potassium 3.7 Chloride 106 Carbon Dioxide 24 Anion Gap 14 BUN 9 Creatinine 0.87 Estim Creat Clear Calc 99.1 Estimated GFR > 60 Random Glucose 147 H Calcium 9.2 Total Bilirubin 0.4 AST 13 ALT 16 Alkaline Phosphatase 51 Troponin I High Sens < 2.7 Total Protein 7.3 Albumin 4.1 Lipase 15 Beta HCG, Quant < 2 Urine Color Yellow Urine Appearance Clear Urine pH >= 9.0 Ur Specific [place] 1.015 Urine Protein Trace Urine Glucose (UA) Negative Urine Ketones Negative Urine Blood Large (3+) H Urine Nitrite Negative Ur Leukocyte Esterase Negative Urine RBC >20 H Urine WBC 0-5 Ur Squamous Epith Cells 0-2 Urine Bacteria None Seen Hyaline Casts 0-2 Influenza Type A (PCR) NEGATIVE Influenza Type B (PCR) NEGATIVE RSV RNA Qual (PCR) NEGATIVE SARS-CoV-2 RNA (RT-PCR) NEGATIVE Airway Mallampati Class: III TM Dist: >3cm Neck ROM: Full Heart: RRR Lungs: CTA Assessment and Plan Assessment Anesthesia Assessment: Anesthesia Plan Discussed and Chart Reviewed Final Anesthetic Review Family History of Problems with Anesthesia: No History of Problems with Anesthesia: No NPO: Yes ASA Class: III Final Preanesthetic Review: Meds/Allgs Chart Reviewed, Consent Obtained/Reviewed and Anes Risks/Benef Reviewed Patient Risk: Intermediate Procedure Risk: Intermediate Anesthetic Plan Anesthetic Plan: GA Disposition: Standard PACU
[2024-03-24] MEDS: fentaNYL citrate/PF 100 MCG/2 ML VIAL 50 MCG IVPUSH (11:57)
--- NOTE | 2024-03-24 13:17 | W.PM.OPN ---
Operative Note Operative Note Date of Service: 03/24/24 Narrative: Preoperative diagnosis: [] <del>Acute</del> <del>cholecystitis</del> Postop diagnosis: [] The same Procedure [] laparoscopic cholecystectomy Surgeon: [] Jacob Check Writer Salesperson: Heriberto Type of Anesthesia: [] General Indication for surgery: [] Markedly corpulent abdomen. Edematous gallbladder with multiple gallstones. Omental adhesions to the gallbladder. Moderately intrahepatic gallbladder. Findings: [] Patient brought to the operating room, placed on operative table in supine position, after an adequate level of general anesthesia was induced, the patient's abdomen was prepped and draped in usual sterile fashion. Using a supraumbilical curvilinear incision, Díaz technique was used to insufflate abdominal cavity to 15 mm of CO2. Upper midline and right subcostal ports were placed under direct laparoscopic view, and the patient placed in reverse Trendelenburg position, and tilted to the left. Findings were as noted above. Gallbladder was grasped using laparoscopic graspers and retracted superiorly and laterally. Omental adhesions swept off the gallbladder were its hilum and common bile duct were approached. Cystic artery and cystic duct were each identified, circumferentially skeletonized, each traced directly into the gallbladder, and critical view obtained. Each was clipped proximally x2, distally x1, and transected. Gallbladder was then cauterized in the gallbladder fossa using Bovie. Gallbladder was moderately intrahepatic. Specimen was placed in an Endo-Catch bag, a retrieved through the umbilical port. Abdominal cavity was copiously irrigated, and secured hemostasis. All ports removed under direct laparoscopic view. Wounds were closed in the following manner; umbilical wound is fascia reapproximated using interrupted 0 Vicryl sutures. Skin wounds were closed using subcuticular 4-0 Vicryl sutures followed by Steri-Strips and sterile dressings. Wounds were infiltrated 0.5% Marcaine at completion. Sponge, needle, and instrument counts reported correct. Patient tolerated the procedure well and emerged from anesthesia stable condition. EBL minimal
[2024-03-24] MEDS: HYDROmorphone HCl 1 MG/ML SYRINGE 0.5 MG IVPUSH ×3 (14:50→23:00)
--- NOTE | 2024-03-24 14:55 | MHC.CM.PN ---
pt lives with her children she is independent has a ride home will not need servoes when dcd
[2024-03-24] MEDS: oxyCODONE HCl Immed Release 5 MG TABLET PO (17:35)
[2024-03-24] MEDS: 0.9 % Sodium Chloride Flush 3 ML SYRINGE IVFLUSH (18:58)
[2024-03-24] MEDS: Docusate Sodium 100 MG CAPSULE PO (18:59)
[2024-03-24] MEDS: LORazepam 1 MG TABLET PO (20:27)
[2024-03-24] MEDS: Lactated Ringers 1,000 ML 100 ML IVCONT (22:24)
[2024-03-25] MEDS: Acetaminophen 325 MG TABLET 650 MG PO ×2 (03:26→09:32)
[2024-03-25 03:31] VITALS: BP 130/73; PULSE 54; RESP 16; TEMP 36.7; O2SAT 96
--- NOTE | 2024-03-25 07:04 | HO.STUDPN_ITS ---
Subjective Subjective Date of Service: 03/25/24 <[facility] Last Filed: 03/25/24 07:15> 03/25/24 <Giovanna Kendall PA-C - Last Filed: 03/25/24 08:40> 03/25/24 <Jamey James MD - Last Filed: 03/25/24 09:39> Interval History: Pt resting comfortably in bed, no overnight events, no nausea/vomiting with liquids, no solid food yet, abdominal pain 2/10 Ambulating well with no dizziness No BM, flatus <[facility] Last Filed: 03/25/24 07:15> Constitutional Constitutional: Reports no additional constitutional complaints, Denies fever(s) and Denies poor appetite <[facility] Filed: 03/25/24 07:15> Eyes Eyes: Reports no additional eye complaints <[facility] Filed: 03/25/24 07:15> ENT Ears, Nose, Mouth, and Throat: Reports system reviewed and no additional complaints, except as documented <[facility] Filed: 03/25/24 07:15> Cardiovascular Cardiovascular: Reports no additional cardiovascular complaints, Denies chest pain, Denies lightheadedness and Denies dyspnea <[facility] Filed: 03/25/24 07:15> Respiratory Respiratory: Reports no additional respiratory complaints and Denies dyspnea [facility] Filed: 03/25/24 07:15> Gastrointestinal Gastrointestinal: Reports abdominal pain (2/10), Denies bloating, Denies nausea and Denies vomiting <[facility] Filed: 03/25/24 07:15> Genitourinary Genitourinary: Reports no additional female genitourinary complaints and Denies dysuria < [facility] Filed: 03/25/24 07:15> Musculoskeletal Musculoskeletal: Reports no additional musculoskeletal complaints <[facility] Filed: 03/25/24 07:15> Integumentary/Breasts Skin/Breast: Reports no additional skin complaints <[facility] Filed: 03/25/24 07:15> Neurologic Neurologic: Reports system reviewed and no additional complaints, except as documented <[facility] Filed: 03/25/24 07:15> Physical Exam 2 Vital Signs: Vital Signs: Last Vital Signs Temp 98.1 F 03/25/24 03:31 Pulse 54 03/25/24 03:31 Resp 16 03/25/24 03:31 BP 130/73 03/25/24 03:31 Pulse Ox 96 03/25/24 03:31 O2 Del Method Room Air 03/25/24 03:31 BMI result Body Mass Index 38.3 <[facility] Filed: 03/25/24 07:15> Remains afebrile <[facility] Filed: 03/25/24 07:15> Const: General: cooperative, comfortable, no acute distress, alert, awake and Physically active <[facility] Filed: 03/25/24 07:15> Orientation/consciousness: patient oriented x3 <[facility] Filed: 03/25/24 07:15> Limitations: no limitations <[facility] Filed: 03/25/24 07:15> HEENT: Head: Yes normocephalic and Yes atraumatic <[facility] Filed: 03/25/24 07:15> Ears: hearing grossly normal bilaterally <[facility] Filed: 03/25/24 07:15> Face and sinus: Yes face symmetric <[facility] Filed: 03/25/24 07:15> Eyes: General: appearance normal, both eyes and all related structures < [facility] Filed: 03/25/24 07:15> Sclerae: sclerae normal <[facility] Filed: 03/25/24 07:15> EOM: EOMs intact bilaterally <[facility] Filed: 03/25/24 07:15> Resp: Effort & Inspection: normal respiratory effort <[facility] Filed: 03/25/24 07:15> Auscultation: clear to auscultation bilaterally, no crackles, no rales, no rhonchi and no wheezes <[facility] Filed: 03/25/24 07:15> Cardio: Jugular venous distension: no JVD <[facility] Filed: 03/25/24 07:15> Rate: regular rate <[facility] Filed: 03/25/24 07:15> Rhythm: regular rhythm <[facility] Filed: 03/25/24 07:15> Heart sounds: S1 normal heart sound present, S2 normal heart sound present, no gallops, no murmurs and no rubs <[facility] Filed: 03/25/24 07:15> Peripheral pulses: Peripheral pulses 2+ throughout <[facility] Filed: 03/25/24 07:15> GI: Inspection: Yes incision (dressings c/d/i) <[facility] Filed: 03/25/24 07:15> Palpation (GI): Soft to palpation, Tenderness to palpation present (GI) (appropriate tenderness over incision), no guarding and not rigid <[facility] Filed: 03/25/24 07:15> Auscultation: normoactive bowel sounds <[facility] Filed: 03/25/24 07:15> : General: Yes bladder normal to palpation and Yes no CVA tenderness < [facility] Filed: 03/25/24 07:15> Bimanual exam- vagina & uterus: bladder normal to palpation <[facility] Filed: 03/25/24 07:15> Back/Spine/Pelvis: Back: no CVA tenderness <[facility] Filed: 03/25/24 07:15> Skin: General skin exam: no rashes or lesions noted <[facility] Filed: 03/25/24 07:15> General skin exam: no jaundice <Giovanna Kendall PA-C Last Filed: 03/25/24 08:40> Neuro: General: patient oriented x3 and moves all extremities <[facility] Last Filed: 03/25/24 07:15> Gait exam (Neuro): Normal gait present <[facility] Filed: 03/25/24 07:15> Extrem: General: Yes capillary refill normal and Yes no pedal edema < Nicole Weathers - Last Filed: 03/25/24 07:15> Objective Data Active Medications Acetaminophen (Acetaminophen 325 Mg Tablet) 650 mg PO Q6H PRN PRN Reason: Pain, Mild (Pain Scale 1-3), fever or headache Last Admin: 03/25/24 03:26 Dose: 650 mg Documented By: CHRISTOPHER Calcium Carbonate (Calcium Carbonate 750 Mg Tab.Chew) 750 mg PO Q4H PRN PRN Reason: Heartburn Docusate Sodium (Docusate Sodium 100 Mg Capsule) 100 mg PO BID [facility] Last Admin: 03/24/24 18:59 Dose: 100 mg Documented By: CHRISTOPHER Hydromorphone HCl (Hydromorphone Hcl 1 Mg/Ml Syringe) 0.5 mg IVPUSH Q4H PRN; Protocol PRN Reason: Pain, Severe (Pain Scale 7-10) Last Admin: 03/24/24 23:00 Dose: 0.5 mg Documented By: CHRISTOPHER Lactated Ringer's (Lr) 1,000 mls @ 100 mls/hr IVCONT .Q10H [facility] Last Admin: 03/25/24 05:23 Dose: Not Given Documented By: CHRISTOPHER Non-Admin Reason: IV Running Magnesium Hydroxide (Milk Of Magnesia 30 Ml Oral.Susp) 30 ml PO DAILY PRN PRN Reason: Constipation Melatonin (Melatonin 3 Mg Tablet) 6 mg PO BEDTIME PRN PRN Reason: Insomnia Last Admin: 03/23/24 21:30 Dose: 6 mg Documented By: DANIELA Metoclopramide HCl (Metoclopramide Hcl 10 Mg/2 Ml Vial) 10 mg IVPUSH Q6H PRN PRN Reason: Nausea Last Admin: 03/24/24 17:35 Dose: 10 mg Documented By: CHARLES Ondansetron HCl (Ondansetron Hcl 4 Mg/2 Ml Vial) 4 mg IVPUSH Q8H PRN PRN Reason: Nausea and Vomiting Last Admin: 03/24/24 19:02 Dose: 4 mg Documented By: CHRISTOPHER Oxycodone HCl (Oxycodone Hcl Immed Release 5 Mg Tablet) 5 mg PO Q4H PRN PRN Reason: Pain, Moderate(Pain Scale 4-6) Last Admin: 03/24/24 17:35 Dose: 5 mg Documented By: CHARLES Sodium Chloride (0.9 % Sodium Chloride Flush 3 Ml Syringe) [address] [facility] [facility] Last Admin: 03/24/24 18:58 Dose: 3 ml Documented By: BRIANQC <Nicole Chaney Last Filed: 03/25/24 07:15> Labs CBC & Chem 7: 03/23/24 08:50 03/23/24 08:50 <Nicole Last Filed: 03/25/24 07:15> Assessment and Plan (1) Acute cholecystitis: Status: Acute <Nicole [facility] Last Filed: 03/25/24 07:15> (2) S/P laparoscopic cholecystectomy: Status: Acute <Nicole Filed: 03/25/24 07:15> Assessment and Plan: POD1 s/p lap dominic; pt has improved and appropriate pain this morning with c/d/i dressings, no nausea/vomiting with liquids, and is ambulating well Plan: -Monitor for tolerance of solid diet -Transition to PO analgesics -Encourage continued ambulation and IS use -Plan to discharge today with continued progression <Nicole Ritu Last Filed: 03/25/24 07:15> POD1 s/p lap dominic; pt has improved and appropriate pain this morning with c/d/i dressings, no nausea/vomiting with liquids, and is ambulating well Plan: -Monitor for tolerance of solid diet -Transition to PO analgesics -Encourage continued ambulation and IS use -Plan to discharge today with continued progression Agree with above assessment and plan. Patient POD #1 s/p lap dominic. Doing well post operatively. Abd exam benign with clean/intact dressings, appropriate post op tenderness. Will reassess later today, if tolerating solid diet and remains comfortable, stable for dc to home. F/u in office in 1 week. Patient comfortable with plan. <Giovanna Kendall PA-C - Last Filed: 03/25/24 08:40> Quality Stroke Does the patient have a stroke diagnosis?: No <Nicole Ritu Last Filed: 03/25/24 07:15> VTE Prior VTE?: No <Nicole [facility] Last Filed: 03/25/24 07:15> VTE Risk Level:: Surgical - high <Nicolegeorgina Weathers Last Filed: 03/25/24 07:15> VTE Device Contraindication: N/A - Device Ordered <Nicole Weathers Filed: 03/25/24 07:15> VTE Drug Contraindication: N/A - Med Ordered <Nicolegeorgina Weathers Filed: 03/25/24 07:15>
--- NOTE | 2024-03-25 07:04 | HO.STUDENTPN ---
Subjective Subjective Date of Service: 03/25/24 <[facility] Last Filed: 03/25/24 07:15> 03/25/24 <Giovanna Kendall PA-C - Last Filed: 03/25/24 08:40> 03/25/24 <Jamey James MD - Last Filed: 03/25/24 09:39> Interval History: Pt resting comfortably in bed, no overnight events, no nausea/vomiting with liquids, no solid food yet, abdominal pain 2/10 Ambulating well with no dizziness No BM, flatus <[facility] Last Filed: 03/25/24 07:15> Constitutional Constitutional: Reports no additional constitutional complaints, Denies fever(s) and Denies poor appetite <[facility] Filed: 03/25/24 07:15> Eyes Eyes: Reports no additional eye complaints <[facility] Filed: 03/25/24 07:15> ENT Ears, Nose, Mouth, and Throat: Reports system reviewed and no additional complaints, except as documented <[facility] Filed: 03/25/24 07:15> Cardiovascular Cardiovascular: Reports no additional cardiovascular complaints, Denies chest pain, Denies lightheadedness and Denies dyspnea <[facility] Filed: 03/25/24 07:15> Respiratory Respiratory: Reports no additional respiratory complaints and Denies dyspnea <[facility] Filed: 03/25/24 07:15> Gastrointestinal Gastrointestinal: Reports abdominal pain (2/10), Denies bloating, Denies nausea and Denies vomiting <[facility] Filed: 03/25/24 07:15> Genitourinary Genitourinary: Reports no additional female genitourinary complaints and Denies dysuria <[facility] Filed: 03/25/24 07:15> Musculoskeletal Musculoskeletal: Reports no additional musculoskeletal complaints <[facility] Filed: 03/25/24 07:15> Integumentary/Breasts Skin/Breast: Reports no additional skin complaints <[facility] Filed: 03/25/24 07:15> Neurologic Neurologic: Reports system reviewed and no additional complaints, except as documented <[facility] Filed: 03/25/24 07:15> Physical Exam Vital Signs: Vital Signs: Last Vital Signs Temp 98.1 F 03/25/24 03:31 Pulse 54 03/25/24 03:31 Resp 16 03/25/24 03:31 BP 130/73 03/25/24 03:31 Pulse Ox 96 03/25/24 03:31 O2 Del Method Room Air 03/25/24 03:31 BMI result Body Mass Index 38.3 <[facility] Filed: 03/25/24 07:15> Remains afebrile <[facility] Filed: 03/25/24 07:15> Const: General: cooperative, comfortable, no acute distress, alert, awake and Physically active <[facility] Filed: 03/25/24 07:15> Orientation/consciousness: patient oriented x3 <[facility] Filed: 03/25/24 07:15> Limitations: no limitations <[facility] Filed: 03/25/24 07:15> HEENT: Head: Yes normocephalic and Yes atraumatic <[facility] Filed: 03/25/24 07:15> Ears: hearing grossly normal bilaterally <[facility] Filed: 03/25/24 07:15> Face and sinus: Yes face symmetric <[facility] Filed: 03/25/24 07:15> Eyes: General: appearance normal, both eyes and all related structures <[facility] Filed: 03/25/24 07:15> Sclerae: sclerae normal <[facility] Filed: 03/25/24 07:15> EOM: EOMs intact bilaterally <[facility] [employer] Filed: 03/25/24 07:15> Resp: Effort & Inspection: normal respiratory effort <[facility] Filed: 03/25/24 07:15> Auscultation: clear to auscultation bilaterally, no crackles, no rales, no rhonchi and no wheezes <[facility] Filed: 03/25/24 07:15> Cardio: Jugular venous distension: no JVD <[facility] Filed: 03/25/24 07:15> Rate: regular rate <[facility] Filed: 03/25/24 07:15> Rhythm: regular rhythm <[facility] Filed: 03/25/24 07:15> Heart sounds: S1 normal heart sound present, S2 normal heart sound present, no gallops, no murmurs and no rubs <[facility] Filed: 03/25/24 07:15> Peripheral pulses: Peripheral pulses 2+ throughout <[facility] Filed: 03/25/24 07:15> GI: Inspection: Yes incision (dressings c/d/i) <[facility] Filed: 03/25/24 07:15> Palpation (GI): Soft to palpation, Tenderness to palpation present (GI) (appropriate tenderness over incision), no guarding and not rigid <[facility] Filed: 03/25/24 07:15> Auscultation: normoactive bowel sounds <[facility] Filed: 03/25/24 07:15> : General: Yes bladder normal to palpation and Yes no CVA tenderness <[facility] Filed: 03/25/24 07:15> Bimanual exam- vagina & uterus: bladder normal to palpation <[facility] Filed: 03/25/24 07:15> Back/Spine/Pelvis: Back: no CVA tenderness <[facility] Filed: 03/25/24 07:15> Skin: General skin exam: no rashes or lesions noted <[facility] Filed: 03/25/24 07:15> General skin exam: no jaundice <Giovanna Kendall PA-C Last Filed: 03/25/24 08:40> Neuro: General: patient oriented x3 and moves all extremities <[facility] Last Filed: 03/25/24 07:15> Gait exam (Neuro): Normal gait present <[facility] Filed: 03/25/24 07:15> Extrem: General: Yes capillary refill normal and Yes no pedal edema <Nicole Weathers - Last Filed: 03/25/24 07:15> Objective Data Active Medications Acetaminophen (Acetaminophen 325 Mg Tablet) 650 mg PO Q6H PRN PRN Reason: Pain, Mild (Pain Scale 1-3), fever or headache Last Admin: 03/25/24 03:26 Dose: 650 mg Documented By: CHRISTOPHER Calcium Carbonate (Calcium Carbonate 750 Mg Tab.Chew) 750 mg PO Q4H PRN PRN Reason: Heartburn Docusate Sodium (Docusate Sodium 100 Mg Capsule) 100 mg PO BID [facility] Last Admin: 03/24/24 18:59 Dose: 100 mg Documented By: CHRISTOPHER Hydromorphone HCl (Hydromorphone Hcl 1 Mg/Ml Syringe) 0.5 mg IVPUSH Q4H PRN; Protocol PRN Reason: Pain, Severe (Pain Scale 7-10) Last Admin: 03/24/24 23:00 Dose: 0.5 mg Documented By: CHRISTOPHER Lactated Ringer's (Lr) 1,000 mls @ 100 mls/hr IVCONT .Q10H [facility] Last Admin: 03/25/24 05:23 Dose: Not Given Documented By: CHRISTOPHER Non-Admin Reason: IV Running Magnesium Hydroxide (Milk Of Magnesia 30 Ml Oral.Susp) 30 ml PO DAILY PRN PRN Reason: Constipation Melatonin (Melatonin 3 Mg Tablet) 6 mg PO BEDTIME PRN PRN Reason: Insomnia Last Admin: 03/23/24 21:30 Dose: 6 mg Documented By: DANIELA Metoclopramide HCl (Metoclopramide Hcl 10 Mg/2 Ml Vial) 10 mg IVPUSH Q6H PRN PRN Reason: Nausea Last Admin: 03/24/24 17:35 Dose: 10 mg Documented By: CHARLES Ondansetron HCl (Ondansetron Hcl 4 Mg/2 Ml Vial) 4 mg IVPUSH Q8H PRN PRN Reason: Nausea and Vomiting Last Admin: 03/24/24 19:02 Dose: 4 mg Documented By: CHRISTOPHER Oxycodone HCl (Oxycodone Hcl Immed Release 5 Mg Tablet) 5 mg PO Q4H PRN PRN Reason: Pain, Moderate(Pain Scale 4-6) Last Admin: 03/24/24 17:35 Dose: 5 mg Documented By: CHARLES Sodium Chloride (0.9 % Sodium Chloride Flush 3 Ml Syringe) [facility] Last Admin: 03/24/24 18:58 Dose: 3 ml Documented By: BRIANQC <Nicole Chaney Last Filed: 03/25/24 07:15> Labs CBC & Chem 7: 03/23/24 08:50 03/23/24 08:50 <Nicole Last Filed: 03/25/24 07:15> Assessment and Plan (1) Acute cholecystitis: Status: Acute <Nicole [facility] Last Filed: 03/25/24 07:15> (2) S/P laparoscopic cholecystectomy: Status: Acute <Nicole Ritu Filed: 03/25/24 07:15> Assessment and Plan: POD1 s/p lap dominic; pt has improved and appropriate pain this morning with c/d/i dressings, no nausea/vomiting with liquids, and is ambulating well Plan: -Monitor for tolerance of solid diet -Transition to PO analgesics -Encourage continued ambulation and IS use -Plan to discharge today with continued progression <Nicolegeorgina Chaney Last Filed: 03/25/24 07:15> POD1 s/p lap dominic; pt has improved and appropriate pain this morning with c/d/i dressings, no nausea/vomiting with liquids, and is ambulating well Plan: -Monitor for tolerance of solid diet -Transition to PO analgesics -Encourage continued ambulation and IS use -Plan to discharge today with continued progression Agree with above assessment and plan. Patient POD #1 s/p lap dominic. Doing well post operatively. Abd exam benign with clean/intact dressings, appropriate post op tenderness. Will reassess later today, if tolerating solid diet and remains comfortable, stable for dc to home. F/u in office in 1 week. Patient comfortable with plan. <Giovanna Kendall PA-C - Last Filed: 03/25/24 08:40> Quality Stroke Does the patient have a stroke diagnosis?: No <Nicole Ritu Last Filed: 03/25/24 07:15> VTE Prior VTE?: No <Nicole [facility] - Last Filed: 03/25/24 07:15> VTE Risk Level:: Surgical - high <Nicole Weathers Filed: 03/25/24 07:15> VTE Device Contraindication: N/A - Device Ordered <Nicole Weathers Filed: 03/25/24 07:15> VTE Drug Contraindication: N/A - Med Ordered <Nicole Weathers Filed: 03/25/24 07:15>
[2024-03-25 07:09] VITALS: BP 125/82; PULSE 60; RESP 16; TEMP 36.7; O2SAT 96
--- NOTE | 2024-03-25 08:55 | HO.POSTANES ---
Post Anesthesia Evaluation Post Anesthesia Evaluation Date of Service: 03/24/24 Vital Signs: Vital Signs Temp Pulse Resp BP Pulse Ox O2 Del Method 03/25/24 07:09 98.1 F 60 16 125/82 96 Room Air 03/25/24 03:31 98.1 F 54 16 130/73 96 Room Air 03/24/24 23:24 98.4 F 66 16 113/58 L 95 Room Air Anesthesia: General Endotracheal-GETA Mental Status: Awake Pain Control: Satisfactory Nausea/Vomiting: None Hydration: Adequate Anesthesia-Related Issues: No Anes. Related Issues
[2024-03-25] MEDS: Docusate Sodium 100 MG CAPSULE PO (09:32)
--- NOTE | 2024-03-25 10:13 | PM.DS ---
DS: Providers Provider Date of Service: 03/25/24 Date of admission: 03/23/24 14:08 Date of discharge: 03/25/24 Primary care physician: Unknown Physician Attending physician on admission: Jamey James Attending physician on discharge: Jamey James DS: Diagnosis Discharge Diagnosis (1) Acute cholecystitis: Status: Acute DS: Summary Hospital Course Hospital Course: HPI AT ADMISSION: Pt is 44 year-old female with a PMHx of HIV on [place] presenting with constant, worsening epigastric abdominal pain for six days and 12 hours of nausea with around 10 episodes of emesis. She states she hasn't been able to eat as much this week due to pain. She's had episodes of postprandial pain before, lasting a few hours. No diarrhea, constipation, hematochezia, fevers, chills, jaundice, dysuria, increased urinary frequency, or hematuria. CT scan showed distended gallbladder with wall thickening and pericholecystic fluid suggestive of acute cholecystitis. HOSPITAL COURSE: The patient was admitted to the surgical service for further treatment of the acute cholecystitis. She elected to proceed with laparoscopic cholecystectomy, possible open. She was added onto the OR schedule for the following day. On 03/24/24, a laparoscopic cholecystectomy was performed by Dr. James without complication. The patient tolerated the procedure well. She had an uncomplicated recovery course. On POD #1, she felt well and was tolerating a solid diet without nausea or vomiting, had good pain control and was ambulating without difficulty. She was hemodynamically stable. Her abdomen was benign with appropriate post op tenderness and clean and intact dressings. she felt ready for discharge. She was discharged to home on 03/25/24 in stable condition. She is to follow up in the office in 1 week. Status at Discharge Functional status at discharge: independent ambulation Overall status at discharge: patient is progressing back to baseline Time Attestation Discharge Coordination Time (in mins): 30 Quality: Safe Use of Opioids Does Pt have an Active Cancer Diagnosis on the Problem List?: No Quality: Stroke Does the patient have a stroke diagnosis?: No Physical Exam Vital Signs: Vital Signs: Last Vital Signs Temp 98.1 F 03/25/24 07:09 Pulse 60 03/25/24 07:09 Resp 16 03/25/24 07:09 BP 125/82 03/25/24 07:09 Pulse Ox 96 03/25/24 07:09 O2 Del Method Room Air 03/25/24 07:09 BMI result Body Mass Index 38.3 Const: General: comfortable, no acute distress and alert Orientation/consciousness: patient oriented x3 Resp: Effort & Inspection: normal respiratory effort GI: Inspection: No distended and Yes incision (dressings c/d/i) Palpation (GI): Soft to palpation and no guarding Skin: General skin exam: no rashes or lesions noted Neuro: General: patient oriented x3 and moves all extremities DS: Data Data Completed and Pending Pending studies at discharge: Pending at discharge 03/24/24 12:56 Surgical [PTH] Routine Discharge Plan Discharge Anticipated Discharge Date/Time: 03/25/24 13:32 Patient Disposition: Home, Self-Care Discharge Diagnosis: Acute cholecystitis Referrals: Jamey James MD [Physician] - 1 Week Physician,Unknown J [Primary Care Provider] - 1 Week Discharge Medications: New hydrocodone-acetaminophen 5-325 mg tablet 1 tab PO Q4-6H PRN (Reason: pain) Qty: 30 0RF Rx Instructions: Partial Fill upon patient request. docusate sodium [Colace] 100 mg capsule 100 mg PO BID Qty: 30 0RF Continued Cabenuva 600 mg/3 mL- 900 mg/3 mL suspension,extended release 6 ml IM Q60D Discharge Orders: Discharge Order (Routine); Ordered 03/25/24 Ordered By: Giovanna Kendall Diet: Advance to usual diet Activity on Discharge: No heavy lifting Stand Alone Forms: Patient Portal Discharge page, Work/School Release Print Language: Polish Activity Restrictions/Additional Instructions: Apply an ice pack for short intervals (20 minutes on, followed by at least 20 minutes off) for the first 2 days. Do not apply heat. Do not use creams, lotions, or topical antibiotics. These can cause infection or allergic reaction. Ok to shower 48 hours after your surgery. Remove dressings in 2 days and replace as needed. You have steri strips (small white cloth strips) covering your incision- these will fall off ~1 week. Follow up in office with Dr. James in 1 week. ([phone]) No heavy lifting (>10lbs) or strenuous activity! Call Your Doctor If: -Your temperature exceeds 101.5? F -You experience excessive pain or swelling -You have an unexpected reaction to medication -You have excessive bleeding -You experience continued vomiting/nausea -Your incision begins to separate -Your incision shows signs of infection such as increased redness, swelling, excessive pain, drainage (light blood or clear fluid is normal) or heat Care Plan Goals: Convalescence from surgery Health Concerns: No acute issues Plan of Treatment: Returned to baseline Assessment: Doing well post op.
--- NOTE | 2024-03-25 10:34 | MHC.CM.PN ---
pt home self care
== END 2024-03-25 11:31 | disposition home or self-care (01) | DRG 419 ==
LOC: HO.ED 12:50 → HO.SSS 12:59 → HO.EDOVER 14:25 → HO.S3 19:27
PROVIDERS: Physician Assistant; Admitting Provider Physician Assistant Surgical; Emergency Provider Emergency Medicine Emergency Medical Services; Visit Provider Surgery
PROC: 0FT44ZZ Resection of Gallbladder, Percutaneous Endoscopic Approach (ICD-10-PCS; CPT 47562; principal; 2024-03-24 11:30)
DX: K80.00 Calculus of gallbladder with acute cholecystitis without obstruction (principal); Z21 Asymptomatic human immunodeficiency virus [HIV] infection status; K82.8 Other specified diseases of gallbladder; Z20.822 Contact with and (suspected) exposure to COVID-19; Z79.899 Other long term (current) drug therapy
CPT/HCPCS: 0241U; 36415; 74177; 76705; 80053; 81001; 83690; 84484; 84702; 85025; 88304; 93005; 99285; J0696; J1100; J1170; J1596; J1885; J2250; J2270; J2405; J2543; J2704; J2765; J2795; J3010; J7120; Q9967

== ENCOUNTER → 2024-03-23 14:08 | Outpatient (BNV) | payer SELFPAY | PROVIDERS: Admitting Provider Physician Assistant Surgical; Emergency Provider Emergency Medicine Emergency Medical Services; Visit Provider Physician Assistant Surgical | DX: K81.0 Acute cholecystitis (principal) | CPT/HCPCS: 47562; 99024; 99222 ==

== ENCOUNTER 2024-03-31 10:20 | Outpatient (AMB) | payer OTHER, SELFPAY ==
--- NOTE | 2024-03-31 10:20 | A.OFFVIS_ITS ---
Intake Visit Reasons: s/p Cholecystectomy Laparoscopic Intake Note: Patient here s/p lap dominic on 03-24-2024. Reports incisions healing well. Patient c/o: steri strips in place. No longer taking rx pain meds. Car Shifter Required: No Accompanied by: Self / Same As Patient Allergies No Known Allergies [No Known Allergies*] Allergy (Verified 03/31/24 10:22) HPI Comments Details: Patient presents status post laparoscopic cholecystectomy. She is doing quite well. Starting a diet. Having regular bowel habits. She is increasing her activity level. She has minimal incisional discomfort. [facility] Medical History HIV (human immunodeficiency virus infection) Surgical History (Updated 03/31/24 @ 10:20 by SENDY Stewart) Hx laparoscopic cholecystectomy (03/24/24) History of Social History Household Members: Children Housing: Apartment Do you presently have visiting nurse or other home services: No Patient Tobacco Use Status: Never used Tobacco Substance Use Type: Marijuana service: No Physical Exam Eyes Other: Anicteric GI Other: Abdomen is soft, benign, corpulent. Incisions all clean dry and intact healing very well Assessment & Plan Assessment & Plan (1) S/P laparoscopic cholecystectomy: Code(s): Z90.49 - Acquired absence of other specified parts of digestive tract Category: Medical Plan Patient was given local instructions, no to start work and will weeks time with 2 weeks light duty, and will otherwise follow-up p.r.n.. All questions answered. Coding Level of Care Code Global (82524) Diagnoses S/P laparoscopic cholecystectomy Z90.49
== END 2024-03-31 10:33 | disposition home or self-care (01) ==
PROVIDERS: Visit Provider Surgery
DX: Z90.49 Acquired absence of other specified parts of digestive tract (principal)
CPT/HCPCS: 99024

== ENCOUNTER → 2024-03-31 10:20 | Outpatient (BNVA) | payer OTHER, SELFPAY | PROVIDERS: Visit Provider Surgery | DX: Z48.815 Encounter for surgical aftercare following surgery on the digestive system (principal); Z90.49 Acquired absence of other specified parts of digestive tract | CPT/HCPCS: 99212 ==